=== PATIENT | female | born 1975 | race Caucasian/White ===

== ENCOUNTER 2018-03-01 14:59 | Emergency (ER) | payer MEDICAID ==
[2018-03-01] MEDS: ACETAMINOPHEN 500 MG TAB PO (16:24)
[2018-03-01 16:34] LABS: ADD MAN DIFF? NO
[2018-03-01 16:35] LABS: BASOPHIL # 0.1 10^3/ul (0.0-0.1); BASOPHILS % 0.5 % (0.0-2.0); EOSINOPHILS # 0.2 10^3/ul (0.0-0.5); EOSINOPHILS % 1.9 % (0.0-7.0); HEMATOCRIT 39.9 % (37.0-47.0); HEMOGLOBIN 13.4 g/dl (12.0-16.0); LYMPHOCYTES # 2.1 10^3/ul (0.8-2.9); MEAN CORPUSCULAR HEMOGLOBIN 28.6 pg (29.0-33.0); MEAN CORPUSCULAR HGB CONC 33.6 g/dl (32.0-37.0); MEAN CORPUSCULAR VOLUME 85.1 fl (82.0-101.0); MEAN PLATELET VOLUME 10.4 fl (7.4-10.4); MONOCYTE # 0.7 10^3/ul (0.3-0.9); MONOCYTES % 6.8 % (0.0-11.0); NEUTROPHIL # 6.9 10^3/ul (1.6-7.5); NEUTROPHILS % 69.5 % (39.0-77.0); PLATELET COUNT 291 10^3/UL (140-415); RED BLOOD COUNT 4.69 10^6/ul (4.20-5.40); RED CELL DISTRIBUTION WIDTH 13.4 % (11.5-14.5)
[2018-03-01 16:37] LABS: ADD UMIC YES; UR ASCORBIC ACID NEGATIVE (NEGATIVE); UR BACTERIA MANY /HPF (NONE SEEN); UR BILIRUBIN (Dip) NEGATIVE (NEGATIVE); UR BLOOD (Dip) 1+ mg/dL (NEGATIVE); UR CLARITY SLIGHTLY CLOUDY (CLEAR); UR COLOR YELLOW (YELLOW); UR GLUCOSE (Dip) NEGATIVE (NEGATIVE); UR KETONES (Dip) NEGATIVE (NEGATIVE); UR LEUKOCYTE ESTERASE (Dip) 3+ Leu/ul (NEGATIVE); UR NITRITE (Dip) NEGATIVE (NEGATIVE); UR RBC 8 /HPF (0-5); UR SPECIFIC GRAVITY (Dip) 1.003 (1.003-1.030); UR SQUAMOUS EPITHELIAL CELL MODERATE /HPF (FEW); UR TOTAL PROTEIN (Dip) NEGATIVE (NEGATIVE); UR UROBILINOGEN (Dip) NEGATIVE (NEGATIVE); UR WBC 7 /HPF (0-5)
[2018-03-01 16:54] LABS: ALANINE AMINOTRANSFERASE 27 IU/L (13-69); ALBUMIN 4.5 g/dl (3.3-4.9); ALBUMIN/GLOBULIN RATIO 1.25; ALKALINE PHOSPHATASE 74 IU/L (42-121); ANION GAP 16 (8-16); ASPARTATE AMINO TRANSFERASE 21 IU/L (15-46); BILIRUBIN,INDIRECT 0.1 mg/dl (0-1.1); BILIRUBIN,TOTAL 0.1 mg/dl (0.2-1.3); BLOOD UREA NITROGEN 10 mg/dl (7-20); CALCIUM 9.5 mg/dl (8.4-10.2); CARBON DIOXIDE 27 mmol/L (21-31); CHLORIDE 104 mmol/L (97-110); CREATININE 0.61 mg/dl (0.44-1.00); GLUCOSE 92 mg/dl (70-220); POTASSIUM 3.6 mmol/L (3.5-5.1); SODIUM 143 mmol/L (135-144); TOTAL PROTEIN 8.1 g/dl (6.1-8.1)
== END 2018-03-01 18:05 | disposition home or self-care (01) ==
LOC: FTE 14:59
DX: O26.891 Other specified pregnancy related conditions, first trimester (principal); R10.84 Generalized abdominal pain; R10.2 Pelvic and perineal pain; Z3A.01 Less than 8 weeks gestation of pregnancy
CPT/HCPCS: 36415; 76801; 76817; 80053; 81001; 84702; 85025; 86900; 86901; 99284-25

== ENCOUNTER 2018-07-08 07:45 | Day surgery (SDC) | payer MEDICAID ==
[2018-07-04 16:29] LABS: ADD MAN DIFF? NO; BASOPHILS % 0.5 % (0.0-2.0); EOSINOPHILS # 0.3 10^3/ul (0.0-0.5); HEMATOCRIT 38.9 % (37.0-47.0); HEMOGLOBIN 13.1 g/dl (12.0-16.0); IMMATURE GRANS #M 0.03 10^3/ul; IMMATURE GRANS % (M) 0.3 %; LYMPHOCYTES # 2.8 10^3/ul (0.8-2.9); LYMPHOCYTES % 32.3 % (15.0-51.0); MEAN CORPUSCULAR HGB CONC 33.7 g/dl (32.0-37.0); MEAN CORPUSCULAR VOLUME 86.3 fl (82.0-101.0); MEAN PLATELET VOLUME 10.5 fl (7.4-10.4); MONOCYTE # 0.6 10^3/ul (0.3-0.9); MONOCYTES % 6.8 % (0.0-11.0); NEUTROPHIL # 4.9 10^3/ul (1.6-7.5); NEUTROPHILS % 57.1 % (39.0-77.0); PLATELET COUNT 267 10^3/UL (140-415); RED BLOOD COUNT 4.51 10^6/ul (4.20-5.40); RED CELL DISTRIBUTION WIDTH 12.8 % (11.5-14.5)
[2018-07-04 16:29] LABS: WHITE BLOOD COUNT 8.6 10^3/ul (4.8-10.8)
[2018-07-04 16:47] LABS: ALANINE AMINOTRANSFERASE 22 IU/L (13-69); ALBUMIN 4.1 g/dl (3.3-4.9); ALBUMIN/GLOBULIN RATIO 1.32; ALKALINE PHOSPHATASE 82 IU/L (42-121); ANION GAP 13 (8-16); ASPARTATE AMINO TRANSFERASE 29 IU/L (15-46); BILIRUBIN,INDIRECT 0.2 mg/dl (0-1.1); BILIRUBIN,TOTAL 0.2 mg/dl (0.2-1.3); BLOOD UREA NITROGEN 7 mg/dl (7-20); CALCIUM 9.2 mg/dl (8.4-10.2); CARBON DIOXIDE 27 mmol/L (21-31); CHLORIDE 106 mmol/L (97-110); CREATININE 0.55 mg/dl (0.44-1.00); GLUCOSE 96 mg/dl (70-220); POTASSIUM 4.2 mmol/L (3.5-5.1); SODIUM 142 mmol/L (135-144); TOTAL PROTEIN 7.2 g/dl (6.1-8.1)
[2018-07-04 16:48] LABS: INR 0.84; PROTIME 11.6 Sec (11.9-14.9); PT RATIO 0.9
[2018-07-08] MEDS ORDERED: SOD CHLORIDE 0.9% 1,000 ML IV (08:30)
[2018-07-08] MEDS ORDERED: CEFAZOLIN 2 GM/50 ML (PMX) 50 ML IVPB (08:30)
[2018-07-08 12:10] LABS: ADD MAN DIFF? NO
[2018-07-08 12:15] LABS: BASOPHILS % 0.6 % (0.0-2.0); EOSINOPHILS # 0.1 10^3/ul (0.0-0.5); EOSINOPHILS % 1.1 % (0.0-7.0); HEMATOCRIT 39.8 % (37.0-47.0); HEMOGLOBIN 13.3 g/dl (12.0-16.0); LYMPHOCYTES # 1.6 10^3/ul (0.8-2.9); LYMPHOCYTES % 23.2 % (15.0-51.0); MEAN CORPUSCULAR HEMOGLOBIN 28.3 pg (29.0-33.0); MEAN CORPUSCULAR HGB CONC 33.4 g/dl (32.0-37.0); MEAN CORPUSCULAR VOLUME 84.7 fl (82.0-101.0); MEAN PLATELET VOLUME 11.2 fl (7.4-10.4); MONOCYTE # 0.6 10^3/ul (0.3-0.9); NEUTROPHIL # 4.7 10^3/ul (1.6-7.5); NEUTROPHILS % 66.8 % (39.0-77.0); PLATELET COUNT 283 10^3/UL (140-415); RED CELL DISTRIBUTION WIDTH 13.1 % (11.5-14.5)
[2018-07-08 12:17] LABS: INR 0.87; PARTIAL THROMBOPLASTIN TIME 26.4 Sec (25.0-35.0); PROTIME 11.9 Sec (11.9-14.9); PT RATIO 0.9
[2018-07-08] MEDS ORDERED: ISOSULFAN BLUE 1% 5 ML INJ SC (12:17)
[2018-07-08 12:25] LABS: ANION GAP 12 (8-16); BLOOD UREA NITROGEN 8 mg/dl (7-20); CALCIUM 9.1 mg/dl (8.4-10.2); CARBON DIOXIDE 26 mmol/L (21-31); CHLORIDE 107 mmol/L (97-110); CREATININE 0.53 mg/dl (0.44-1.00); GLUCOSE 111 mg/dl (70-220); POTASSIUM 3.7 mmol/L (3.5-5.1); SODIUM 141 mmol/L (135-144)
[2018-07-08] MEDS ORDERED: OXYCODONE/ACETAMINOPHEN (5/325) TAB PO (12:30)
[2018-07-08] MEDS ORDERED: HYDROmorphONE 1 MG/5 ML IV SYRINGE IV (12:30)
[2018-07-08] MEDS ORDERED: FENTAnyl 50 MCG/ML VIAL IV (12:30)
[2018-07-08] MEDS ORDERED: DIPHENHYDRAMINE 50 MG INJ IV (12:30)
[2018-07-08] MEDS ORDERED: ALBUTEROL 0.083% (NEB) 2.5 MG/3 ML AMP HHN (12:30)
[2018-07-08] MEDS ORDERED: morphine (1 MG/ML) 10ML SYRINGE IV ×2 (12:30)
[2018-07-08] MEDS ORDERED: LABETALOL HCL 20MG INJ IV (12:30)
[2018-07-08] MEDS ORDERED: ACETAMINOPHEN 1000MG/100ML IV 100 ML (12:44)
[2018-07-08] MEDS ORDERED: CEFAZOLIN 1 GM INJ (12:44)
[2018-07-08] MEDS ORDERED: LIDOCAINE 2% (SDV) 5 ML INJ (12:44)
[2018-07-08] MEDS ORDERED: PROPOFOL 40 ML (12:44)
[2018-07-08] MEDS ORDERED: DEXAMETHASONE 4 MG/ML 1 ML INJ (12:45)
[2018-07-08] MEDS ORDERED: FAMOTIDINE 20 MG INJ (12:45)
[2018-07-08] MEDS ORDERED: FENTAnyl 50 MCG/ML VIAL ×2 (12:45)
[2018-07-08] MEDS ORDERED: MIDAZOLAM 1 MG/ML 2 ML INJ (12:45)
[2018-07-08] MEDS ORDERED: ONDANSETRON 4 MG INJ (12:45)
[2018-07-08] MEDS ORDERED: EPHEDrine SULFATE 50 MG/5 ML SYG (13:38)
[2018-07-08] MEDS ORDERED: PHENYLephrine (100 MCG/ML) 5ML SYG (13:51)
[2018-07-08] MEDS: HYDROmorphONE 1 MG/5 ML IV SYRINGE IV ×2 (14:25→14:30)
[2018-07-08] MEDS ORDERED: HYDROCODONE/APAP (7.5/325) TAB PO (14:30)
[2018-07-08] MEDS: ONDANSETRON 4 MG INJ IV (14:36)
[2018-07-08] MEDS: MEPERIDINE 25 MG INJ IV (14:37)
[2018-07-08] MEDS: FENTAnyl 50 MCG/ML VIAL IV (14:39)
[2018-07-08] MEDS: OXYCODONE/ACETAMINOPHEN (5/325) TAB PO (16:04)
== END 2018-07-08 17:14 | disposition home or self-care (01) ==
LOC: SDS 07:45
DX: D05.12 Intraductal carcinoma in situ of left breast (principal)
CPT/HCPCS: 19301; 80048; 80053; 84703; 85025; 85610; 85730; 88307

== ENCOUNTER 2018-07-14 04:39 | Emergency (ER) | payer MEDICAID ==
[2018-07-14] MEDS: LIDOCAINE/MYLANTA 40 ML BTL PO (06:53)
== END 2018-07-14 07:13 | disposition home or self-care (01) ==
LOC: FTE 04:39
DX: R10.13 Epigastric pain (principal); Z85.3 Personal history of malignant neoplasm of breast
CPT/HCPCS: 99283; Z7502

== ENCOUNTER 2018-08-05 09:17 | Day surgery (SDC) | payer MEDICAID ==
[~2018-08-05 09:17] MED LIST: CEFAZOLIN 2 GM/50 ML (PMX) 50 ML IVPB; SOD CHLORIDE 0.9% 1,000 ML IV
[2018-08-05] MEDS ORDERED: METOCLOPRAMIDE 10 MG INJ (12:37)
[2018-08-05] MEDS ORDERED: MEPERIDINE /PF (100 MG/2 ML) AMPULE (12:37)
[2018-08-05] MEDS ORDERED: ONDANSETRON 4 MG INJ (12:37)
[2018-08-05] MEDS ORDERED: PROPOFOL 20 ML (12:37)
[2018-08-05] MEDS ORDERED: LIDOCAINE 2% (SDV) 5 ML INJ (12:37)
[2018-08-05] MEDS ORDERED: CEFAZOLIN 1 GM INJ (12:37)
[2018-08-05] MEDS ORDERED: HYDROmorphONE 1 MG/5 ML IV SYRINGE IV ×2 (13:45→14:00)
[2018-08-05] MEDS: HYDROmorphONE 1 MG/5 ML IV SYRINGE IV ×2 (13:58→14:29)
[2018-08-05] MEDS ORDERED: LABETALOL HCL 20MG INJ IV (14:00)
[2018-08-05] MEDS ORDERED: MIDAZOLAM 1 MG/ML 2 ML INJ IV (14:00)
[2018-08-05] MEDS ORDERED: FENTAnyl 50 MCG/ML VIAL IV ×3 (14:00)
[2018-08-05] MEDS ORDERED: EPHEDrine SULFATE 50 MG/5 ML SYG IV (14:00)
[2018-08-05] MEDS ORDERED: HYDROCODONE/APAP (7.5/325) TAB PO (14:00)
[2018-08-05] MEDS ORDERED: MEPERIDINE 25 MG INJ IV (14:00)
[2018-08-05] MEDS ORDERED: ONDANSETRON 4 MG INJ IV (14:00)
[2018-08-05] MEDS ORDERED: DIPHENHYDRAMINE 50 MG INJ IV (14:00)
[2018-08-05] MEDS ORDERED: hydrALAzine 20 MG INJ IV (14:00)
[2018-08-05] MEDS ORDERED: METOCLOPRAMIDE 10 MG INJ IV (14:00)
[2018-08-05] MEDS ORDERED: OXYCODONE/ACETAMINOPHEN (5/325) TAB PO (14:00)
[2018-08-05] MEDS: OXYCODONE/ACETAMINOPHEN (5/325) TAB PO (14:50)
== END 2018-08-05 16:15 | disposition home or self-care (01) ==
LOC: SDS 09:17
DX: D05.12 Intraductal carcinoma in situ of left breast (principal); N60.32 Fibrosclerosis of left breast
CPT/HCPCS: 19301; 88307

== ENCOUNTER 2018-11-04 08:58 | Day surgery (SDC) | payer MEDICAID ==
[~2018-11-04 08:58] MED LIST changes: -CEFAZOLIN 2 GM/50 ML (PMX) 50 ML IVPB; +DEXAMETHASONE 4 MG/ML 1 ML INJ; +ONDANSETRON 4 MG INJ; -SOD CHLORIDE 0.9% 1,000 ML IV; +SUCCINYLCHOLINE CHLORIDE 100 MG/5 ML SYG IV
[2018-11-04] MEDS ORDERED: LIDOCAINE 2% (SDV) 5 ML INJ (11:22)
[2018-11-04] MEDS ORDERED: FENTAnyl 50 MCG/ML VIAL ×2 (11:22→12:48)
[2018-11-04] MEDS ORDERED: GLYCOPYRROLATE 0.4 MG INJ (11:22)
[2018-11-04] MEDS ORDERED: MIDAZOLAM 1 MG/ML 2 ML INJ (11:22)
[2018-11-04] MEDS ORDERED: PROPOFOL 20 ML (11:22)
[2018-11-04] MEDS ORDERED: NEOSTIGMINE 3 MG/3 ML SYRINGE (11:22)
[2018-11-04] MEDS ORDERED: ROCURONIUM 50 MG INJ (11:22)
[2018-11-04] MEDS ORDERED: CEFAZOLIN 1 GM INJ (11:55)
[2018-11-04] MEDS ORDERED: MEPERIDINE 25 MG INJ (12:48)
[2018-11-04] MEDS ORDERED: ONDANSETRON 4 MG INJ (12:48)
[2018-11-04] MEDS ORDERED: LABETALOL HCL 20MG INJ IV (13:00)
[2018-11-04] MEDS ORDERED: ALBUTEROL 0.083% (NEB) 2.5 MG/3 ML AMP HHN (13:00)
[2018-11-04] MEDS ORDERED: HYDROmorphONE 1 MG/5 ML IV SYRINGE IV ×2 (13:00)
[2018-11-04] MEDS ORDERED: OXYCODONE/ACETAMINOPHEN (5/325) TAB PO (13:00)
[2018-11-04] MEDS ORDERED: DIPHENHYDRAMINE 50 MG INJ IV (13:00)
[2018-11-04] MEDS ORDERED: FENTAnyl 50 MCG/ML VIAL IV (13:00)
[2018-11-04] MEDS: FENTAnyl 50 MCG/ML VIAL IV (13:14)
[2018-11-04] MEDS: MEPERIDINE 25 MG INJ IV (13:17)
[2018-11-04] MEDS: ONDANSETRON 4 MG INJ IV (13:19)
[2018-11-04] MEDS: KETOROLAC 15 MG INJ IV (13:40)
[2018-11-04] MEDS: HYDROmorphONE 1 MG/5 ML IV SYRINGE IV (13:40)
[2018-11-04] MEDS: HYDROCODONE/APAP (7.5/325) TAB PO (13:41)
[2018-11-04] MEDS: OXYCODONE/ACETAMINOPHEN (5/325) TAB PO (14:54)
== END 2018-11-04 15:27 | disposition home or self-care (01) ==
LOC: REC 08:58 → SDS 08:58
DX: N60.22 Fibroadenosis of left breast (principal); N60.32 Fibrosclerosis of left breast; N60.12 Diffuse cystic mastopathy of left breast; D24.2 Benign neoplasm of left breast; N64.1 Fat necrosis of breast; Z85.3 Personal history of malignant neoplasm of breast
CPT/HCPCS: 19301; 84703; 88307